=== PATIENT | female | born 1945 | race Caucasian/White ===

== ENCOUNTER → 2019-02-12 | Outpatient (CLI) | payer OTHER ==
[~2019-02-12] MED LIST: DITROPAN XL10 M1 PO; FLEXERIL PO; GABAPENTIN 100100 MG PO; NORVASC10 MG PO; ZOLOFT25 MG PO
== END ==
LOC: M.RAD 10:45
DX: Z12.31 Encounter for screening mammogram for malignant neoplasm of breast (principal)

== ENCOUNTER 2019-06-04 12:04 | Emergency (ER) | payer OTHER ==
[~2019-06-04] VITALS: Ht 165.1 cm; Wt 56.7 kg
[2019-06-04] MEDS ORDERED: ZANAFLEX2 M1 PO (12:14)
[2019-06-04 12:42] LABS: HEMATOCRIT 42.1 % (37.0-47.0); HEMOGLOBIN 14.2 gm/dL (12.0-15.0); MCH 32.4 pg (26.0-34.0); MCHC 33.6 g/dL (28.0-37.0); MCV 96.4 fL (80.0-100.0); MPV 10.2 fl. (7.2-11.1); RBC 4.37 mil/uL (4.20-5.00); RDW-CV 13.8 % (10.5-14.5); WBC 7.2 thou/uL (4.0-11.0)
[2019-06-04 12:51] LABS: CALCIUM 9.3 mg/dL (8.5-10.1); CREATININE 0.8 mg/dL (0.6-1.3); POTASSIUM 3.9 mmol/L (3.5-5.1)
[2019-06-04 13:16] VITALS: BP 183/72
== END 2019-06-04 13:20 | disposition home or self-care (01) ==
LOC: M.ERS 12:04
PROVIDERS: Emergency Medicine Emergency Medical Services
DX: R04.0 Epistaxis (principal); I10 Essential (primary) hypertension; F41.9 Anxiety disorder, unspecified; Z85.9 Personal history of malignant neoplasm, unspecified

== ENCOUNTER → 2019-12-13 | Outpatient (CLI) | payer OTHER ==
[~2019-12-13] MED LIST changes: +ZANAFLEX2 M1 PO
== END ==
LOC: M.RAD 08:40
PROVIDERS: ATTEND Family Medicine
DX: R06.2 Wheezing (principal); M47.9 Spondylosis, unspecified

== ENCOUNTER → 2019-12-16 | Outpatient (CLI) | payer OTHER | LOC: M.RAD 14:20 | PROVIDERS: ATTEND Family Medicine | DX: M50.30 Other cervical disc degeneration, unspecified cervical region (principal); R63.4 Abnormal weight loss; Z78.0 Asymptomatic menopausal state ==

== ENCOUNTER → 2021-07-19 | Outpatient (CLI) | payer OTHER | LOC: M.RAD 07-06 11:10 | PROVIDERS: ATTEND Family Medicine | DX: Z12.31 Encounter for screening mammogram for malignant neoplasm of breast (principal); M85.88 Other specified disorders of bone density and structure, other site; M81.0 Age-related osteoporosis without current pathological fracture; Z78.0 Asymptomatic menopausal state ==